=== PATIENT | male | born 1960 | race Caucasian/White ===

== ENCOUNTER 2021-06-15 08:15 | Day surgery (SDC) | payer MEDICARE, MEDICAID ==
[2021-06-08 15:39] LABS: BASOPHILS # (AUTO) 0.1 X10'3 (0-0.2); BASOPHILS % (AUTO) 0.8 % (0-1); EOSINOPHILS # (AUTO) 0.3 X10'3 (0-0.9); EOSINOPHILS % (AUTO) 3.1 % (0-6); LYMPHOCYTES # (AUTO) 0.7 X10'3 (1.1-4.8); LYMPHOCYTES % (AUTO) 7.7 % (21-51); MEAN CORPUSCULAR HEMOGLOBIN 33.2 PG (27.0-31.0); MEAN CORPUSCULAR HGB CONC 33.5 g/dL (33.0-36.5); MONOCYTES # (AUTO) 0.5 X10'3 (0-0.9); NEUTROPHILS # (AUTO) 7.5 X10'3 (1.8-7.7); NEUTROPHILS % (AUTO) 82.4 % (42-75); PRE OP HEMATOCRIT 39.7 % (42.0-52.0); PRE OP HEMOGLOBIN 13.3 g/dL (14.0-17.9); PRE OP PLATELET COUNT 618 X10'3 (140-440); RED BLOOD COUNT 4.01 X10'6 (4.70-6.10); RED CELL DISTRIBUTION WIDTH 15.4 % (11.5-14.5)
[2021-06-08 15:54] LABS: ALBUMIN 3.5 G/DL (3.4-5.0); ALKALINE PHOSPHATASE 56 IU/L (46-116); BLOOD UREA NITROGEN 6 MG/DL (7-18); BUN/CREATININE RATIO 6.4 (5.4-32.0); CALCIUM 8.9 MG/DL (8.5-10.1); CHLORIDE 97 MMOL/L (99-107); CREATININE 0.94 MG/DL (0.60-1.10); PRE OP ALT 26 U/L (30-65); PRE OP ANION GAP 9 (8-16); PRE OP AST 30 U/L (10-37); PRE OP BILIRUB, TOTAL 0.5 MG/DL (0.0-1.0); PRE OP GLUCOSE 92 MG/DL (70-104); PRE OP POTASSIUM 4.5 MMOL/L (3.4-5.1); PRE OP SODIUM 132 MMOL/L (135-145); TOTAL PROTEIN 6.9 G/DL (6.4-8.2); eGFR 82 ML/MIN
[2021-06-08 16:16] LABS: GIANT PLATELET FEW; PLATELET ESTIMATE INCREASED
[2021-06-08 16:17] LABS: ANISOCYTOSIS 1+
[~2021-06-15] VITALS: Ht 165.1 cm; Wt 83.8 kg
[2021-06-15] VITALS (7 sets, daily range): BP systolic 142–164; BP diastolic 79–95
[~2021-06-15 08:15] MED LIST: ALBU18HF2; ATEN50TA8 PO; BACL20TA PO; BUDE180A INH; DOCUMENT DATE & TIME OF BETA-BLOCKER PO ONE; INDOCYANINE GREEN 25 MG/10 ML VIAL IV ONE; LEVO25TA7 PO; LOSA100T57 PO; MELO-102 PO; OMEP40CA21 PO; PREG50CA64 PO; albuterol 2.5 MG/3 ML nebule NEB ONE; cefazolin/dext.iso 2gm/50ml IV ONE; famotidine 20mg tablet PO ONE; ringers solution, lacted 1,000 ML IV SCH
[2021-06-15] MEDS ORDERED: BUDE10.22 INH (08:41)
[2021-06-15] MEDS ORDERED: BUPIVAcaine/PF 2.5 mg/ml (0.25%) 30ml vial ONE (10:59)
[2021-06-15] MEDS ORDERED: LIDOcaine 1% 30ml preserv. free vial ONE (10:59)
[2021-06-15] MEDS ORDERED: fentaNYL/PF 50MCG/1 ML 2ML syringe ONE (11:10)
[2021-06-15] MEDS ORDERED: rocuronium 10mg/ml inj IV ONE (11:10)
[2021-06-15] MEDS ORDERED: midazolam 1 mg/ML 2ml injection ONE (11:10)
[2021-06-15] MEDS ORDERED: propofol inj 20 ML IV ONE (11:10)
[2021-06-15] MEDS ORDERED: ringers solution, lacted 1,000 ML IV SCH (11:45)
[2021-06-15] MEDS ORDERED: meperidine/PF 25mg/ml syringe IV PRN ×3 (11:45)
[2021-06-15] MEDS ORDERED: morphine 4 MG/ML inj SYRINge IV PRN (11:45)
[2021-06-15] MEDS ORDERED: ondansetron/PF 4mg/2ml inj IV PRN (11:45)
[2021-06-15] MEDS ORDERED: morphine 2 MG/ML inj. syringe IV PRN (11:45)
[2021-06-15] MEDS ORDERED: proCHLORperazine 10 MG/2 ml inj IV PRN (11:45)
[2021-06-15] MEDS ORDERED: labetalol 20mg/4ml (5mg/ml) syringe IV PRN (11:45)
[2021-06-15] MEDS ORDERED: neostigmine methylsulfate 1 MG/ML 10ml vial ONE (11:57)
[2021-06-15] MEDS ORDERED: glycopyrrolate 0.2mg/ml inj ONE (11:57)
[2021-06-15] MEDS ORDERED: HYDROcodone/acetaminophen 5mg/325mg tablet PO PRN (12:15)
--- NOTE | 2021-06-15 12:15 | NUR ---
Received from OR via [facility], accompanied by Anesthesiologist and report given by Anesthesiologist. PATIENT WAKING UP, NO S/S OF PAIN, V/S WNL, SCD ON, 20G TO LUE, LAP SURGICAL SITES TO ABDOMEN CDI.
--- NOTE | 2021-06-15 13:05 | NUR ---
PATIENT A&OX4, STATES MILD PAIN, V/S WNL, SCD OFF, 20G TO RUE D/C, LAP SURGICAL SITES TO ABDOMEN CDI.I HAVE REVIEWED D/C INSTRUCTIONS WITH PATIENT and they have verbalized understanding patient d/c home with all belongings and family gave transport home.
== END 2021-06-15 13:05 | disposition home or self-care (01) ==
LOC: PAS 08:15
PROVIDERS: ATTEND Surgery
DX: K81.1 Chronic cholecystitis (principal); E03.9 Hypothyroidism, unspecified; I10 Essential (primary) hypertension; J45.909 Unspecified asthma, uncomplicated; G89.29 Other chronic pain; I27.20 Pulmonary hypertension, unspecified; Z20.822 Contact with and (suspected) exposure to COVID-19; Z79.899 Other long term (current) drug therapy; Z98.890 Other specified postprocedural states; Z87.891 Personal history of nicotine dependence; Z72.89 Other problems related to lifestyle
CPT/HCPCS: 36415; 47563; 71046; 80053; 82948; 85025; 93005; J0690; J2250; J2704; J2710; J3010; J3490; J7030; J7120; U0003; U0005; Z7506; Z7508; Z7512; 85008; 88304; A4215; A4618; A7000

== ENCOUNTER 2023-11-08 13:45 | Outpatient (CLI) | payer MEDICARE, MEDICAID ==
[~2023-11-08 13:45] MED LIST changes: +BUDE10.22 INH; -BUDE180A INH; -DOCUMENT DATE & TIME OF BETA-BLOCKER PO ONE; -INDOCYANINE GREEN 25 MG/10 ML VIAL IV ONE; -LOSA100T57 PO; +LOSA100T58 PO; -PREG50CA64 PO; +PREG50CA65 PO; -albuterol 2.5 MG/3 ML nebule NEB ONE; -cefazolin/dext.iso 2gm/50ml IV ONE; -famotidine 20mg tablet PO ONE; -ringers solution, lacted 1,000 ML IV SCH
== END 2023-11-08 23:59 | disposition home or self-care (01) ==
LOC: CARD DIAG 13:45
PROVIDERS: ATTEND Nurse Practitioner Family
DX: I08.0 Rheumatic disorders of both mitral and aortic valves (principal); R06.09 Other forms of dyspnea
CPT/HCPCS: 93306

== ENCOUNTER 2024-07-30 08:13 | Outpatient (CLI) | payer MEDICARE, MEDICAID ==
[2024-07-30] VITALS (21 sets, daily range): BP systolic 123–158; BP diastolic 77–100; PULSE 99–109
== END 2024-07-30 23:59 | disposition home or self-care (01) ==
LOC: CARD DIAG 08:13
PROVIDERS: ATTEND Physician Assistant
DX: R42 Dizziness and giddiness (principal)
CPT/HCPCS: 93660

== ENCOUNTER 2025-03-16 19:27 | Inpatient (IN) | payer MEDICARE, MEDICAID ==
[~2025-03-16] VITALS: Ht 165.1 cm; Wt 75.0 kg
--- NOTE | 2025-03-16 19:41 | ELECTROCARDIOGRAPH REPORT ---
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 Cruz Zhang Measurements Intervals [place] Rate: 89 P: 60 CA: 131 QRS: 52 QRSD: 141 T: 40 QT: 382 QTc: 465 Interpretive Statements Sinus rhythm Right bundle branch block Electronically Signed On 03-19-2025 7:41:[address] Cruz Zhang Please click the below link to view image of tracing.
[2025-03-16 20:20] LABS: MEAN PLATELET VOLUME 7.6 FL (7.4-10.4); RED CELL DISTRIBUTION WIDTH 20.1 % (11.5-14.5)
[2025-03-16 20:55] LABS: CREATININE 0.89 MG/DL (0.60-1.10); PRO BRAIN NATRIURETIC PEPTIDE 616 PG/ML (0-125); TOTAL CARBON DIOXIDE 22.9 MMOL/L (24-32); eCRCL 74 ML/MIN; eGFR 86 ML/MIN
--- NOTE | 2025-03-16 21:47 | Physician Documentation ---
History of Present Illness ~ Chief Complaint: ALOC Stated Complaint: TRANSFER Time Seen by MD: 21:38 HPI Patient presents to the emergency room that has a transfer from [facility] for evaluation of hallucinations and bizarre behavior. He is initially seen a few days ago where CT scan was performed was negative. That has symptoms have continued to worsen therefore sent him here for evaluation of possible stroke. Medication Reconciliation Allergies: Coded Allergies: No Known Allergies (Unverified , 03/16/25) Scheduled Atenolol (Atenolol), 1 TAB PO DAILY, (Reported) Baclofen (Baclofen), 1 TAB PO BID, (Reported) Budesonide/Formoterol Fumarate (Symbicort 80-4.5 Mcg Inhaler), 2 PUFFS INH Q12H, (Reported) Levothyroxine Sodium (Levothyroxine Sodium), 1 TAB PO DAILY, (Reported) Losartan Potassium (Losartan Potassium), 1 TAB PO DAILY, (Reported) Meloxicam (Meloxicam), 1 TAB PO DAILY, (Reported) Omeprazole (Prilosec), 1 CAP PO DAILY, (Reported) Pregabalin (Pregabalin), 1 CAP PO BID, (Reported) Miscellaneous Medications Albuterol Sulfate (Ventolin Hfa), (Reported) Review of Systems ROS All review of systems negative except as per HPI Physical Exam Vital Signs: Temperature: 98.5, Source: Oral, Heart Rate: 92, Respiratory Rate: 16, BP: 156/88, Pulse Oximetry: 96, Weight: 72.500 Oxygen Flow Rate: 0 Physical Exam General: Patient is awake, alert, in no acute distress Head: Normocephalic and atraumatic. Eyes: Conjunctival normal. EOMI. PERRL. ENT: Mucous membranes moist. Neck: Supple, trachea is midline. Chest: Clear to auscultation bilaterally without rales, rhonchi, or wheezes. There is no accessory muscle use or retractions. Cardiac: RRR without murmurs, gallops, or rubs. Neuro: Cranial nerves II-XII grossly intact. No focal neuro deficits. Progress Results/Orders Results/Orders Orders - GERARD MEJIA MD Monitor (03/16/25 19:38) Saline Lock (03/16/25 19:38) Oxygen (03/16/25 19:38) Hs Troponin I W Calculations (03/16/25 22:38) Straight Cath For Urine Sample (03/16/25 21:01) Page Hospitalist (03/16/25 21:49) Fill Out Med Reconciliation (03/16/25 21:49) Completed Orders - GERARD MEJIA MD Cbc/Diff (03/16/25 19:38) BMP (03/16/25 19:38) PBNP (03/16/25 19:38) Electrocardiogram (03/16/25 19:38) Hs Troponin I W Calculations (03/16/25 19:38) Hs Troponin I W Calculations (03/16/25 21:38) Ua W/Microscopic, Cult If Ind (03/16/25 20:10) Vital Signs 03/16/25 03/16/25 19:38 21:50 Temp 98.5 Pulse 92 Resp 16 14 B/P (MAP) 156/88 Pulse Ox 96 O2 Flow Rate 0 Laboratory Tests Test 03/16/25 20:10 03/16/25 20:11 03/16/25 21:16 Urine Specimen Description Non-specified Urine Color Straw Urine Clarity Clear Urine pH 6.5 Urine Specific [place] 1.015 Urine Protein Negative Urine Glucose (UA) >=1000 H Urine Ketones Negative Urine Occult Blood Negative Urine Nitrite Negative Urine Bilirubin Negative Urine Urobilinogen 0.2 Urine Leukocyte Esterase Negative Urine RBC 0-2 Urine WBC 0-4 Urine Squamous Epithelial Cells None seen Urine Bacteria None seen Urine Culture Indicated Not ind Volume Urine Centrifuged 10 ml Urine Comment White Blood Count 15.5 H Red Blood Count 4.89 Hemoglobin 12.0 L Hematocrit 38.2 L Mean Corpuscular Volume 78.2 Mean Corpuscular Hemoglobin 24.5 L Mean Corpuscular Hemoglobin Concent 31.4 L Red Cell Distribution Width 20.1 H Platelet Count 588 H Mean Platelet Volume 7.6 Neutrophils (%) (Auto) 88.8 H Lymphocytes (%) (Auto) 4.1 L Monocytes (%) (Auto) 3.0 Eosinophils (%) (Auto) 3.6 Basophils (%) (Auto) 0.5 Neutrophils # (Auto) 13.8 H Lymphocytes # (Auto) 0.6 L Monocytes # (Auto) 0.5 Eosinophils # (Auto) 0.6 Basophils # (Auto) 0.1 CBC Comment Sodium Level 137 Potassium Level 4.0 Chloride Level 103 Carbon Dioxide Level 22.9 L Anion Gap 11 Blood Urea Nitrogen 12 Creatinine 0.89 Estimated GFR/1.73 m2 86 BUN/Creatinine Ratio 13.5 Glucose Level 70 Calcium Level 7.8 L Troponin I High Sensitivity 8 9 Pro-B-Type Natriuretic Peptide 616 H Albumin 2.8 L Chemistry Comments Troponin I High Sens Percent Delta 12 Troponin I Hi Sens Absolute Change 1 EKG/XRAY/CT/US/VASC/MRI EKG : Additional Comment EKG interpreted by myself shows time of 192, rate 89, sinus rhythm, normal axis, no ST changes, right bundle-branch block Medical Decision Making Additional information obtaine: other Findings Patient presents to the emergency room as transfer [facility] for hallucinations and altered mental status which has been progressive. Possible polypharmacy versus stroke versus other. We will admit for further investigation. Differential Dx:Considerations: Include: dehydration, Delirium Tr., DKA, encephalopathy, hypercalcemia, HHNC, hypoglycemia, hypernatremia, hyponatremia, hypoxia, postictal, closed head injury, C-spine injury, CVA, mass lesion, subarachnoid hemorrhage, drug overdose, encephalopathy, ETOH intoxication, medication toxicity, infection - meningitis, infection - sepsis, infection - UTI, heart failure, renal failure, respiratory failure, hyperthermia, hypothermia, other Departure Admitted to Inpatient Unit: yes, to hospitalist Impression: Primary Impression: Altered mental status Additional Impression: Hallucinations Condition: Guarded Referrals: NO PRIMARY CARE PROVIDER (PCP) Signature Scribe Signature: No scribe Attestation: The note accurately reflects work and decisions made by me.Gerard Mejia MD 03/16/25 21:48 GERARD MEJIA MD Mar 16, 2025 21:47
[2025-03-16 22:00] LABS: LEUKOCYTE ESTERASE ,URINE NEGATIVE (Neg); NITRITES, URINE NEGATIVE (Neg); OCCULT BLOOD,URINE NEGATIVE (Neg)
[2025-03-16 22:13] LABS: UA COLLECTION TYPE NON-SPECIFIED
[2025-03-16 22:14] LABS: SQUAMOUS EPITHELIAL CELL,UR NONE SEEN /LPF (FEW)
[2025-03-16] MEDS ORDERED: potassium Cl 20 mEq SR tablet PO PRN ×2 (23:25)
[2025-03-16] MEDS ORDERED: ondansetron/PF 4mg/2ml inj IV PRN (23:25)
[2025-03-16] MEDS ORDERED: potassium Cl 40MEQ/1/2NS 520ml 520 ML IV PRN (23:25)
[2025-03-16] MEDS ORDERED: diazepam inj 5 MG/ML inj. IV PRN (23:25)
[2025-03-16] MEDS ORDERED: magnesium sulf-water 4G/100mL 100 ML IV PRN (23:25)
[2025-03-16] MEDS ORDERED: magnesium Cl slow-release 64mg tablet PO PRN (23:25)
[2025-03-16] MEDS ORDERED: magnesium hydroxide 30ml (MOM) UD suspension PO PRN (23:25)
[2025-03-16] MEDS ORDERED: magnesium sulf-water 2g/50mL 50 ML IV PRN (23:25)
[2025-03-16] MEDS ORDERED: mag hydrox/Alum hydrox/simeth 30ml oral suspension PO PRN (23:25)
--- NOTE | 2025-03-16 23:53 | HISTORY AND PHYSICAL-Residence ---
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 Patient was initially taken to [place] by his for confusion which has been progressively getting worse. According to note from that [place], the patient could not remember his address, showed bizarre behavior like using a disconnected cell phone and calling imaginary people, having hallucinations. The patient has apparently not been sleeping well. His home medications include gabapentin and baclofen. When I saw the patient in the ER, he seemed alert and oriented. Reports that he was brought to the ER because of generalized pain. He reports he has been every where, says yes for all the questions asked. The patient has been evaluated at [place], CT head was done which showed no acute findings. The patient has been transferred here for further evaluation with MRI and neurologic consultation. Reports that he was an alcoholic in the past, last drink was couple of weeks ago. I tried contacting the patient's but could not get through Addendum Patient had an episode of seizure while in the ER, later coded and CPR was done, pulse returned in 1 minute, patient was intubated and ventilated, on propofol drip and IV levetiracetam. Allergies: Coded Allergies: No Known Allergies (Unverified , 03/16/25) Home Medications Home Medications Active Reported Symbicort 80-4.5 Mcg Inhaler (Budesonide/Formoterol Fumarate) 10.2 Gm Hfa.aer.ad 2 Puffs INH Q12H Ventolin Hfa (Albuterol Sulfate) 18 Gm Hfa.aer.ad Meloxicam 15 Mg Tablet 1 Tab PO DAILY Atenolol 50 Mg Tablet 1 Tab PO DAILY Prilosec (Omeprazole) 40 Mg Capsule 1 Cap PO DAILY Losartan Potassium 100 Mg Tablet 1 Tab PO DAILY Pregabalin 50 Mg Capsule 1 Cap PO BID Baclofen 20 Mg Tablet 1 Tab PO BID Levothyroxine Sodium 25 Mcg Tablet 1 Tab PO DAILY Past Medical History Past Medical History alcohol use, hypertension, 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, seizures, COPD Past Surgical History Surgical History Comment Rotator cuff surgery Gallbladder surgery Possibly had a brain surgery/skull surgery Past Social History Social History Comment Denies any history of smoking Reports that he has a chronic alcoholic, last drink was probably few weeks ago No history of drug use Lives with his ROS Constitutional: Reports: weakness; Denies: no symptoms reported, see HPI, chills, diaphoresis, fever, malaise, other Exam Vitals: Vital Signs Date Time Temp Pulse Resp B/P (MAP) Pulse Ox O2 Delivery O2 Flow Rate FiO2 03/16/25 21:50 14 03/16/25 19:38 98.5 92 96 0 General: General: Adult male, obese, not in apparent distress Head: Normocephalic with an atraumatic Eyes: Pupils- 3mm, reacting to light, , nonicteric Nose and throat: No polyps, septum- normal, no mucosal ulcers Neck: Supple, no lymphadenopathy, no carotid bruit Respiratory: no use of accessory muscles of respiration, Bilateral normal vesiscular breath sounds heard. Cardiac: S1-S2 heard, rythm regular, no gallop/murmur Abdomen: Mild tenderness in the epigastric region, soft, nondistended, Extremities: no clubbing, no edema, no deformities, peripheral pulses- 2+ Skin: warm and dry, no rash, no purpura, no telangiectasia noted Neuro: Gross cranial nerve examination normal, no focal motor/sensory deficit, no flapping tremors, no tremors on extension Diagnostic Data Last Recorded Lab Results: 03/16/25201003/16/252010 Advance Care Planning Advanced Care plannin - 30 Minutes (I spent 70 minutes in discussing various resuscitative measures, the patient chose to be full code.) Additional Plan Assessment This is a 65-year-old male with a history of alcohol use, hypertension, 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 While waiting in the ER, patient had an episode of seizure and coded, is intubated and ventilated. Plan Seizures Patient has a history of seizures, not sure about his home medications. Patient had an episode of seizures in the ER Seizures could be secondary to alcohol withdrawal vs medication noncompliance vs polypharmacy On propofol and IV levetiracetam Intubated and ventilated. Encephalopathy Metabolic vs toxic Mini-mental examination-score 27 Patient is currently alert and orientedx3 TSH, ammonia, vitamin B12 levels ordered WBC count is elevated but likely chronic leukocytosis Urine analysis negative for infection Chest x-ray done at [place] showed no acute findings. Could be secondary to polypharmacy use, gabapentin and baclofen use(according to the he might have taken 3-5 extra doses), consulted poison control, recommended supportive management. Could be secondary to alcohol use, alcohol levels ordered U tox screen reviewed from [place] is negative CT head done at [place] showed no acute abnormalities MRI head and EEG ordered Please place a neuro consult after MRI is done. Possible history of seizures Please review home medications Diazepam IV Q 15 PRN for seizures History of hypertension Currently blood pressure is in 156/88 Started on losartan 50 mg Review patient's home medications. Possible history of alcohol use Last drink according to the patient was couple of weeks ago Alcohol levels ordered Does not seem to be in withdrawal Started on thiamine, folic acid, multivitamins Code status; FULL CODE DVT prophylaxis: Heparin GI prophylaxis: Pantoprazole Diet: Regular Diet Ryan Velazquez M.D PGY2 Date of Service: Mar 16, 2025 Billing Provider: GISELLE LYNN MD Addendum Patient reported to have a seizure and while attempting to get antiseizure medications patient began to code. Code blue called. Patient received active CPR for a proximally one round with return of spontaneous circulation. Patient found to be in SVT versus a flutter 12 adenosine administered with no effect. Intubation: That has patient is critically ill the need to secure the airway that has necessary therefore patient intubated using MAC four blade that has well as a bougie and a 8. ET tube with rocuronium 50 and etomidate 10 administered for sedation and paralytic. Post procedure chest x-ray confirms placement. Addendum Patient has converted back to sinus rhythm after diltiazem administration. EKG interpreted by myself shows time of 0122, rate 157, sinus tachycardia, normal axis, no ST changes, right bundle-branch block RYAN VELAZQUEZ, GINA Mar 16, 2025 23:53 MAURISIO AQUINO MD Mar 17, 2025 00:54 GISELLE LYNN MD Mar 17, 2025 12:34
[2025-03-17] VITALS (27 sets, daily range): BP systolic 99–207; BP diastolic 54–124; PULSE 75–166; RESP 13–25; TEMP 98.4; O2SAT 92–100
[2025-03-17 00:33] LABS: EOSINOPHILS % (MANUAL) 2.0 % (0-6); LYMPHOCYTES % (MANUAL) 5.0 % (21-51); MONOCYTES % (MANUAL) 4.0 % (2-12); NEUTROPHILS % (MANUAL) 89.0 % (42-75)
[2025-03-17 00:34] LABS: PLATELET ESTIMATE INCREASED
--- NOTE | 2025-03-17 00:47 | ELECTROCARDIOGRAPH REPORT ---
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 Cruz Zhang Measurements Intervals [place] Rate: 167 P: 0 [place]: 58 QRS: -31 QRSD: 139 T: 44 QT: 296 QTc: 494 Interpretive Statements Wide-QRS tachycardia Right bundle branch block Electronically Signed On 03-19-2025 7:41:[address] Cruz Zhang Please click the below link to view image of tracing.
[2025-03-17] MEDS ORDERED: propofol 1000mg/100ml bottle 100 ML IV PRN (00:50)
[2025-03-17] MEDS: normal saline 1000ML IV soln IVB ONE (01:08)
[2025-03-17] MEDS: diltiazem 5mg/ml 5ml inj. IV ONE (01:11)
--- NOTE | 2025-03-17 01:12 | RADIOLOGY REPORT ---
CHEST RADIOGRAPH Indication: post intubation Technique: Single frontal view of the chest was obtained COMPARISON: CHEST,TWO VIEWS on DOS: 06/08/21 FINDINGS: Lines and Tubes: Endotracheal tube tip projects approximately 3.0 cm above the level of the kiel. Enteric catheter courses below the level of the diaphragm and terminates beyond the inferior margin of the image. Lungs: Clear Pleura: No effusion. No pneumothorax. Cardiomediastinal contours: Unremarkable Bones: Unremarkable IMPRESSION: 1. Endotracheal tube and enteric catheter in appropriate position. 2. No acute cardiopulmonary process.
[2025-03-17] MEDS ORDERED: diltiazem-D5W 125mg/125ml 125 ML IV SCH (01:15)
[2025-03-17] MEDS: rocuronium 10mg/ml inj IV STA (01:16)
[2025-03-17] MEDS: adenosine 3mg/ml 2ml vial IV ONE (01:16)
[2025-03-17] MEDS: etomidate 2mg/ml inj. IV STA (01:17)
[2025-03-17 01:19] LABS: ABG BASE EXCESS -11.8 mmol/L (-2.0-3.0); ABG HCO3 17.3 mmol/L (21.0-28.0); ABG OXYGEN SATURATION 95.9 % (94.0-98.0); ABG PCO2 (T) 51.8 mmHg (35.0-48.0); ABG PH (T) 7.141 (7.350-7.450); ABG PO2 (T) 99.9 mmHg (83.0-108.0); ALLEN'S TEST Modified; FCOHb 0.3 % (0.5-1.5); FHHb 4.1 % (0.0-5.0); FIO2 75.0 mmHg/%; FMetHb 0.2 % (0.0-1.5); FO2Hb 95.4 % (94.0-98.0); MODE CMV PRVC IT .8; PATIENT TEMPERATURE 36.9; RESPIRATORY RATE 16 b/min; TIDAL VOLUME 400 mL; TOTAL HEMOGLOBIN 14.2 G/dl (13.5-17.5)
--- NOTE | 2025-03-17 01:22 | CONSULTATION REPORT ---
History of Present Illness Providers to CC ~ Reason for Admit\Admit Dx: Altered mental status History of Present Illness 65 year old male with history of seizure disorder initially transferred with AMS and had a seizure followed by a brief 1 minute arrest in the ED. He is currently intubated and sedated. Allergies: Coded Allergies: No Known Allergies (Unverified , 03/16/25) Home Medications Home Medications Active Reported Symbicort 80-4.5 Mcg Inhaler (Budesonide/Formoterol Fumarate) 10.2 Gm Hfa.aer.ad 2 Puffs INH Q12H Ventolin Hfa (Albuterol Sulfate) 18 Gm Hfa.aer.ad Meloxicam 15 Mg Tablet 1 Tab PO DAILY Atenolol 50 Mg Tablet 1 Tab PO DAILY Prilosec (Omeprazole) 40 Mg Capsule 1 Cap PO DAILY Losartan Potassium 100 Mg Tablet 1 Tab PO DAILY Pregabalin 50 Mg Capsule 1 Cap PO BID Baclofen 20 Mg Tablet 1 Tab PO BID Levothyroxine Sodium 25 Mcg Tablet 1 Tab PO DAILY Past Medical History Medical History Comment HTN Seizure disorder ETOH use disorder Physical Exam Last Vital Signs Recorded: Temperature: 98.5, Source: Oral, Heart Rate: 153, Respiratory Rate: 16, BP: 193/113, Pulse Oximetry: 96, Weight: 72.500 Review of Systems ROS ROS Comments: unable to review, patiet intubated Results Diagram Lab Result Diagram: 03/16/25201003/16/252010 Assessment/Plan Additional Plan Plan: continue propofol load with keppra continue keppra 500bid repeat bmp, cbc and abg continue full vent support send lactate hold antihypertensives CTH when stable for post arrest prognostication send troponin goal normothermia CCT 60 min using HIPPA compliant A/V technology GISELLE LYNN MD Mar 17, 2025 01:22
[2025-03-17] MEDS: levetiracetamNACL 1500mg/100mL 100 ML IV ONE ×2 (01:23→01:53)
[2025-03-17] MEDS: MIDAZolam 5mg/ml 2ml vial IV ONE (01:27)
[2025-03-17 01:38] LABS: CHOL/HDL RATIO 3.0 (0.00-4.99); CREATININE 0.98 MG/DL (0.60-1.10); LDL CHOLESTEROL 50 MG/DL (50-100); TOTAL CARBON DIOXIDE 16.7 MMOL/L (24-32); eCRCL 67 ML/MIN; eGFR 77 ML/MIN
[2025-03-17 01:40] LABS: ETHANOL < 10 MG/DL (<10)
[2025-03-17 01:46] LABS: INR 1.2 INR
[2025-03-17 01:49] LABS: APTT 33 SECONDS (22-32)
[2025-03-17] MEDS: propofol 1000mg/100ml bottle 100 ML IV PRN (01:50)
[2025-03-17 01:56] LABS: MEAN PLATELET VOLUME 7.8 FL (7.4-10.4); RED CELL DISTRIBUTION WIDTH 20.2 % (11.5-14.5)
--- NOTE | 2025-03-17 02:34 | RADIOLOGY REPORT ---
EXAM: CT CT HEAD INDICATION: ams TECHNIQUE: CT of the head without intravenous contrast. Radiation Dose : 1. Head: CT Dose: CTDI volume is 68.28 mGy. Dose-length product is 1389.99 mGy*cm The dose indicators for CT are the volume Computed Tomography (CT) Dose Index (CTDIvol) and the Dose Length Product (DLP), and are measured in units of mGy and mGy-cm, respectively. These indicators are not patient dose, but values generated from the CT scanner acquisition factors. The report includes radiation exposure data for exposures received during this examination. COMPARISON: CT HEAD on DOS: 03/16/25 FINDINGS: There is no evidence of acute intracranial hemorrhage, extra-axial collection, mass effect, midline shift, herniation or hydrocephalus. Increased prominence of the ventricles, sulci and cisterns consistent with the sequelae of atrophic cortical volume loss. The castro-white differentiation is intact. Moderate diffuse confluent periventricular and subcortical white matter hypoattenuation is nonspecific but may be related to small vessel ischemic disease. Pansinusitis. The mastoid air cells are clear. The surrounding soft tissues and osseous structures are unremarkable. IMPRESSION: 1. No acute intracranial abnormality. 2. 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 Radiation optimization: All CT scans at this facility use at least one of these dose optimization techniques: automated exposure control mA and/or kV adjustment per patient size (includes targeted exams where dose is matched to clinical indication) or iterative reconstruction.
[2025-03-17] MEDS: fentaNYL/PF 50MCG/1 ML 2ML syringe IV PRN (03:09)
[2025-03-17 04:10] LABS: ABG BASE EXCESS -9.7 mmol/L (-2.0-3.0); ABG HCO3 16.5 mmol/L (21.0-28.0); ABG OXYGEN SATURATION 97.7 % (94.0-98.0); ABG PCO2 (T) 37.0 mmHg (35.0-48.0); ABG PH (T) 7.265 (7.350-7.450); ABG PO2 (T) 105.0 mmHg (83.0-108.0); ALLEN'S TEST POSITIVE; FCOHb 0.9 % (0.5-1.5); FHHb 2.3 % (0.0-5.0); FIO2 75.0 mmHg/%; FMetHb 0.3 % (0.0-1.5); FO2Hb 96.5 % (94.0-98.0); MODE CMV PRVC IT 0.8; PATIENT TEMPERATURE 36.9; PEEP 5 cm H2O; RESPIRATORY RATE 16 b/min; TIDAL VOLUME 450 mL; TOTAL HEMOGLOBIN 12.8 G/dl (13.5-17.5)
--- NOTE | 2025-03-17 04:46 | ELECTROCARDIOGRAPH REPORT ---
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 Cruz Zhang Measurements Intervals [place] Rate: 157 P: 0 NC: 58 QRS: -134 QRSD: 141 T: 42 QT: 319 QTc: 516 Interpretive Statements Sinus tachycardia Right bundle branch block Probable inferior infarct, old Baseline wander in lead(s) III,aVF,V6 Electronically Signed On 03-19-2025 7:41:[address] Cruz Zhang Please click the below link to view image of tracing.
[2025-03-17] MEDS: K and/or MAG REPLACEMENT MC SCH (07:11)
[2025-03-17] MEDS: thiamine 100mg/ml 2ml inj. IV SCH (07:17)
[2025-03-17] MEDS: heparin, porcine 5000 units/ml vial SQ SCH (07:17)
[2025-03-17] MEDS: MULTIVIT-MIN/FERROUS GLUCONATE 9 MG/15 ML LIQUID OGT SCH (07:17)
[2025-03-17] MEDS: docusate sod 100mg capsule PO SCH (07:18)
[2025-03-17] MEDS: diltiazem-NS 100mg/100ml 100 ML IV SCH (07:22)
[2025-03-17] MEDS ORDERED: acetaminophen 325mg/10.15ml oral unit dose solution OGT PRN (07:26)
[2025-03-17] MEDS ORDERED: POTASSIUM CHLORIDE 20 MEQ/15 ML oral solution OGT PRN (07:27)
[2025-03-17] MEDS ORDERED: magnesium hydroxide 30ml (MOM) UD suspension OGT PRN (07:27)
[2025-03-17] MEDS: docusate sodium 100mg/10ml UD cup OGT SCH (07:57)
[2025-03-17] MEDS: folic acid 1mg/0.2ml inj IV SCH (07:57)
[2025-03-17] MEDS ORDERED: rocuronium 10mg/ml inj IV ONE (08:00)
[2025-03-17] MEDS ORDERED: etomidate 2mg/ml inj. ONE (08:00)
[2025-03-17] MEDS ORDERED: sod chloride 0.9% 10ml flush syringe IV ONE (08:00)
[2025-03-17] MEDS ORDERED: epiNEPHrine 0.1mg/ml 10ml syringe ONE (08:00)
[2025-03-17] MEDS ORDERED: adenosine 3mg/ml 2ml vial IV ONE (08:00)
[2025-03-17] MEDS ORDERED: albuterol 2.5 MG/3 ML nebule NEB PRN (10:25)
[2025-03-17] MEDS ORDERED: GABA300C PO (11:05)
[2025-03-17] MEDS ORDERED: LEVO50TA8 PO (11:05)
[2025-03-17] MEDS ORDERED: FLUT1BLS16 INH (11:05)
[2025-03-17] MEDS ORDERED: FLUT16SP9 BOTHNARES (11:05)
[2025-03-17] MEDS ORDERED: ALBU8HFA INH (11:05)
[2025-03-17] MEDS ORDERED: [UNRECOGNIZED DRUG - CODE] PO (11:05)
[2025-03-17] MEDS ORDERED: TAMS-55 PO (11:05)
[2025-03-17] MEDS ORDERED: BACL20TA PO (11:05)
--- NOTE | 2025-03-17 11:13 | PROGRESS NOTE- Residence ---
Progress Note - Resident Providers to CC Resident Creating Document: KAREEN ROONEY RES ~ Central Line/PICC still needed: No Dick-Non Protocol Dick Indications Met/Not Met: F/C Indications Met Antibiotic Timeout Antibiotic Ordered?: No Subjective Patient is comfortable at bedside, he has been extubated and is now maintained on 2 L of oxygen via nasal cannula. Continues to have an altered train of thought and poor memory. Unable to provide reliable history. He is stable for downgrading to the floor today. Reports generalized soreness throughout. But denies any particular changes in vision, headaches or hearing changes. Objective Vital Signs Date Time Temp Pulse Resp B/P (MAP) Pulse Ox O2 Delivery O2 Flow Rate FiO2 03/17/25 10:00 98.2 95 25 136/76 (96) 96 Nasal Cannula 3.0 03/17/25 08:00 40 Result Diagram: 03/17/25 0129 03/17/25 0044 General: Awake and Alert, no acute distress. HEENT: Conjunctiva pink, Sclera clear, Mucus Membranes moist. Resp: Unlabored. Lungs clear to auscultation bilaterally. Heart: Regular Rate and rhythm, normal S1 and S2 without murmur, rub or gallop. Abdomen: Distended, soft, mild tenderness diffusely Extremities: No cyanosis,clubbing or edema. AREA FIELD PERSON: Conscious and coherent. No cranial nerve deficits. Vision 6 x 6. Normal tone and nutrition. No motor or sensory deficits. Absent drift. Bradykinesia. Essential tremors. Skin: Warm and Dry. 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 He was found to have a seizure in the ER after which he had coded but ROSC was returned with a minute and he was transferred to the ICU after intubation. He has been extubated today on 03/17/2025. Plan Plan Cardiac arrest status post ROSC: Mechanically intubated secondary to above Lactic acidosis secondary to above Extubated today on 03/17/2025 No other acute events through the night in the ICU Patient is stable for downgrading to the floor Seizure: Etiology unclear Likely alcohol withdrawal seizure Hyperammonemia resolved CT head normal; no intracranial lesions observed Received Keppra loading dose followed by Keppra b.i.d. 500 mg Librium 25 mg b.i.d. started Continue alcohol withdrawal protocol Progressive altered mental status: Chronic progressive encephalopathy MMSE: 27 CT head reveals diffuse cortical atrophy with increased prominence of the ventricles Gait is bradykinetic and magnetic. Presented with behavioral changes and hallucinations Differentials include FTD/Lewy body dementia/Parkinson's/NPH/polypharmacy use with the baclofen or gabapentin Hold baclofen. 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 Follow CBC closely Procalcitonin negative. No SIRS reaction. Lactic acid within normal limits Continue home medication of hydroxyurea 500 mg on Saturday and Monitor for worsening leukocytosis or signs of SIRS Code status; FULL CODE DVT prophylaxis: Heparin GI prophylaxis: Pantoprazole Diet: Regular Diet Kareen Rooney PGY3, Internal medicine resident Date of Service: Mar 17, 2025 Billing Provider: JAYANT JETT MD, DEEPANJALI, RES Mar 17, 2025 11:13
[2025-03-17] MEDS ORDERED: non-formulary drug (albuterol inhaler (Pro-Air Inhaler) 2 PUFFS) INH PRN (11:15)
[2025-03-17] MEDS ORDERED: lactulose 20gm/30ml cup PO SCH (14:00)
[2025-03-17] MEDS: ipratropium/albuterol 3ml nebule NEB SCH (20:07)
[2025-03-17] MEDS: budesonide 0.5mg/2ml UD nebule IH SCH (20:07)
--- NOTE | 2025-03-17 20:58 | PROGRESS NOTE ---
Daily Progress Note Providers to CC ~ Antibiotic Timeout Antibiotic Ordered?: No Subjective The patient was extubated this morning and when I evaluated the patient the patient is alert and oriented x4 has been transferred to the orthopedic floor on a clinical nursing assistant for 24 hours Objective Vital Signs Date Time Temp Pulse Resp B/P (MAP) Pulse Ox O2 Delivery O2 Flow Rate FiO2 03/17/25 20:18 16 03/17/25 20:16 84 Room Air 0.0 92 03/17/25 20:12 92 03/17/25 17:00 98.1 140/79 (99) Result Diagram: 03/17/25 0129 03/17/25 0044 Gen. No acute distress alert and oriented 4 Lungs clear to ascultation bilaterally, no wheezes rales or rhonchi appreciated Heart normal sinus rhythm no murmurs rubs or clicks noted Abdomen soft nontender bowel sounds are normoactive Lower extremities no clubbing cyanosis, nor edema appreciated bilaterally Coagulation Studies Laboratory Tests Test 03/17/25 00:44 Prothrombin Time 12.1 SECONDS (9.0-12.0) H INR International Normalized Ratio 1.2 INR Activated Partial Thromboplast Time 33 SECONDS (22-32) H Coagulation Comments Problem\Assessment\Plan Problems/Diagnosis: (1) Hallucinations Cardiac arrest status post ROSC: Mechanically intubated secondary to above AFib RVR Lactic acidosis secondary to above Extubated today on 03/17/2025 No other acute events through the night in the ICU The patient is transferred to the orthopedic floor on clinical nursing assistant for 24 hours AFib RVR resolved with diltiazem drip also received adenosine Seizure: Etiology unclear Likely alcohol withdrawal seizure Hyperammonemia resolved CT head normal; no intracranial lesions observed Received Keppra loading dose followed by Keppra b.i.d. 500 mg Librium 25 mg b.i.d. started Continue alcohol withdrawal protocol Progressive altered mental status: Chronic progressive encephalopathy MMSE: 27 CT head reveals diffuse cortical atrophy with increased prominence of the ventricles Gait is bradykinetic and magnetic. Presented with behavioral changes and hallucinations Differentials include FTD/Lewy body dementia/Parkinson's/NPH/polypharmacy use with the baclofen or gabapentin Hold baclofen. 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 Follow CBC closely Procalcitonin negative. No SIRS reaction. Lactic acid within normal limits Continue home medication of hydroxyurea 500 mg on Saturday and Monitor for worsening leukocytosis or signs of SIRS Date of Service: Mar 17, 2025 Billing Provider: SILVIA HERNANDEZ DO Common Visit Codes: [id number] INP/OBS CARE(HIGH) SILVIA HERNANDEZ DO Mar 17, 2025 20:58
[2025-03-18] VITALS (15 sets, daily range): BP systolic 114–144; BP diastolic 59–83; PULSE 82–105; RESP 15–18; TEMP 97.8–99; O2SAT 92–97
[2025-03-18 05:40] LABS: MEAN PLATELET VOLUME 7.9 FL (7.4-10.4); RED CELL DISTRIBUTION WIDTH 19.9 % (11.5-14.5)
[2025-03-18 05:57] LABS: CREATININE 0.76 MG/DL (0.60-1.10); TOTAL CARBON DIOXIDE 22.9 MMOL/L (24-32); eCRCL 87 ML/MIN; eGFR > 90 ML/MIN
[2025-03-18] MEDS: POTASSIUM CHLORIDE 20 MEQ/15 ML oral solution OGT PRN (07:49)
[2025-03-18] MEDS: levoTHYROXINE 25mcg tablet PO SCH (07:53)
--- NOTE | 2025-03-18 19:18 | PROGRESS NOTE ---
Daily Progress Note Providers to CC ~ Antibiotic Timeout Antibiotic Ordered?: No Subjective The patient is alert and oriented x4 has a mild tremors however is doing rather well and if stable will likely be discharged in the a.m. Objective Vital Signs Date Time Temp Pulse Resp B/P (MAP) Pulse Ox O2 Delivery O2 Flow Rate FiO2 03/18/25 18:30 114 03/18/25 18:00 97.8 15 114/59 (77) 97 Room Air 03/18/25 15:20 0.0 95 Result Diagram: 03/18/259 03/18/25 0459 Gen. No acute distress alert and oriented 4 Lungs clear to ascultation bilaterally, no wheezes rales or rhonchi appreciated Heart normal sinus rhythm no murmurs rubs or clicks noted Abdomen soft nontender bowel sounds are normoactive Lower extremities no clubbing cyanosis, nor edema appreciated bilaterally Coagulation Studies Laboratory Tests Test 03/17/25 00:44 Prothrombin Time 12.1 SECONDS (9.0-12.0) H INR International Normalized Ratio 1.2 INR Activated Partial Thromboplast Time 33 SECONDS (22-32) H Coagulation Comments Problem\Assessment\Plan Problems/Diagnosis: (1) Hallucinations Cardiac arrest status post ROSC: Mechanically intubated secondary to above AFib RVR Mildly elevated high sensitivity troponin- possibly secondary to a type 2 mi due to cardiac arrest Lactic acidosis secondary to above Extubated today on 03/17/2025 No other acute events through the night in the ICU The patient is transferred to the orthopedic floor on engine monitor for 24 hours AFib RVR resolved with diltiazem drip also received adenosine Seizure: Likely alcohol withdrawal seizure Hyperammonemia resolved CT head normal; no intracranial lesions observed Received Keppra loading dose followed by Keppra b.i.d. 500 mg Librium 25 mg b.i.d. started Continue alcohol withdrawal protocol Metabolic encephalopathy secondary to hepatic encephalopathy/ hyperammonemia MMSE: 27 CT head reveals diffuse cortical atrophy with increased prominence of the ventricles Gait is bradykinetic and magnetic. Presented with behavioral changes and hallucinations Differentials include FTD/Lewy body dementia/Parkinson's/NPH/polypharmacy use with the baclofen or gabapentin Hold baclofen. 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 Follow CBC closely Procalcitonin negative. No SIRS reaction. Lactic acid within normal limits Continue home medication of hydroxyurea 500 mg on Saturday and Monitor for worsening leukocytosis or signs of SIRS Disposition: PT to evaluate and likely discharge in the a.m. Date of Service: Mar 18, 2025 Billing Provider: SILVIA HERNANDEZ DO Common Visit Codes: [id number] INP/OBS CARE(HIGH) SILVIA HERNANDEZ DO Mar 18, 2025 19:18
[2025-03-19] VITALS (10 sets, daily range): BP systolic 114–143; BP diastolic 64–92; PULSE 86–110; RESP 16–18; TEMP 97.7–98.4; O2SAT 94–97
[2025-03-19] MEDS: HYDROmorphone inj. 0.5 MG/0.5 ML DISP.SYRIN IV PRN (01:22)
[2025-03-19] MEDS: diphenhydrAMINE 2%/zinc acetate cream TP ONE (01:29)
[2025-03-19 06:58] LABS: MEAN PLATELET VOLUME 8.1 FL (7.4-10.4); RED CELL DISTRIBUTION WIDTH 20.5 % (11.5-14.5)
[2025-03-19 07:18] LABS: CREATININE 0.88 MG/DL (0.60-1.10); TOTAL CARBON DIOXIDE 28.3 MMOL/L (24-32); eCRCL 75 ML/MIN; eGFR 87 ML/MIN
[2025-03-19] MEDS: diphenhydrAMINE 2%/zinc acetate cream TP SCH (08:28)
[2025-03-19 08:39] LABS: PLATELET ESTIMATE INCREASED
[2025-03-19 08:40] LABS: ELLIPTOCYTES FEW
[2025-03-19] MEDS ORDERED: CHLO25CA10 PO (10:03)
[2025-03-19] MEDS ORDERED: LEVE500T PO (10:03)
[2025-03-19] MEDS: mag hydrox/Alum hydrox/simeth 30ml oral suspension OGT PRN (13:15)
--- NOTE | 2025-03-19 19:59 | DISCHARGE SUMMARY ---
Discharge Summary Providers to CC ~ Discharge Summary Admission Diagnosis: encephalopathy Hospital Course DATE OF ADMISSION: 03/16/2025 DATE OF DISCHARGE: 03/19/2025 Discharge Diagnosis\\Comment: Cardiac arrest status post ROSC, type 2 mi, AFib RVR, mechanical intubation, possible alcohol withdrawal seizure with maged seizure activity, metabolic encephalopathy secondary to hepatic encephalopathy, hematological disorder followed by personnel coordinator Operations\\Procedures: Mechanical intubation Consultants: Engine Lathe Set Up Operator service Complications: None Condition on DC: Stable New Medications: Chlordiazepoxide HCl (Chlordiazepoxide HCl) 25 Mg Capsule 25 MG PO Q8H, #6 CAP Take 1 tablet 3 x a day x 1 day, then 1 tablet 2 x a day x 1 day then 1 tablet a day x 1 day Levetiracetam (Levetiracetam) 500 Mg Tablet 1 TAB PO Q12H for 30 Days, #60 TAB 0 Refills Continued Medications: albuterol inhaler (Pro-Air Inhaler) 8.5 Gm Inhaler 2 PUFFS INH Q4HPRN PRN for wheezing for 30 Days, #18 GM Atenolol (Atenolol) 50 Mg Tablet 1 TAB PO DAILY for 30 Days, #30 TAB 0 Refills Fluticasone Propionate (Fluticasone Propionate) 16 Gm [place].susp 1-2 SPRAYS BOTHNARES DAILY, #16 GM 0 Refills Fluticasone/Umeclidin/Vilanter (Trelegy Ellipta 200-62.5-25) 200-62.5 Blst.w.dev 1 PUFFS INH DAILY for 30 Days, #60 EA 0 Refills Gabapentin (Neurontin) 300 Mg Capsule 1 CAP PO BID for 30 Days, #90 CAP 0 Refills Hydroxyurea (HYDREA capsule) 500 Mg Capsule 1 CAP PO MON,WED,FRI for 30 Days, #30 CAP 0 Refills Levothyroxine Sodium (Levothyroxine Sodium) 50 Mcg Tablet 1 TAB PO DAILY for 30 Days, #30 TAB 0 Refills Losartan Potassium (Losartan Potassium) 100 Mg Tablet 1 TAB PO DAILY for 30 Days, #30 TAB 0 Refills Omeprazole (Prilosec) 40 Mg Capsule 1 CAP PO DAILY for 30 Days, #30 CAP Tamsulosin Hcl* (Flomax*) 0.4 Mg Cap.sr.24h 1 CAP PO DAILY for 30 Days, #30 CAP Discontinued Medications: Baclofen (Baclofen) 20 Mg Tablet 1-2 TAB PO HS PRN for muscle spasms for 30 Days, #90 TAB 0 Refills Discharge Summary: The patient was admitted by CARMEN Rush , under the supervision of GISELLE Castellanos MD with the following HPI:"This is a 65-year-old male with a history of alcohol use, hypertension, 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 Patient was initially taken to [facility] by his for confusion which has been progressively getting worse. According to note from that [facility], the patient could not remember his address, showed bizarre behavior like using a disconnected cell phone and calling imaginary people, having hallucinations. The patient has apparently not been sleeping well. His home medications include gabapentin and baclofen. When I saw the patient in the ER, he seemed alert and oriented. Reports that he was brought to the ER because of generalized pain. He reports he has been every where, says yes for all the questions asked. The patient has been evaluated at [facility], CT head was done which showed no acute findings. The patient has been transferred here for further evaluation with MRI and neurologic consultation. Reports that he was an alcoholic in the past, last drink was couple of weeks ago. I tried contacting the patient's but could not get through Addendum Patient had an episode of seizure while in the ER, later coded and CPR was done, pulse returned in 1 minute, patient was intubated and ventilated, on propofol drip and IV levetiracetam." Patient also had a rapid heart rate in the ED he has which was initially consider SVT was the patient is given adenosine followed by diltiazem 15 mg an hour this was discontinued and the patient went to the ICU on the morning of the the patient was extubated and transferred to the neurology floor the patient had no further episodes of seizures initially has a metabolic encepha lopathy secondary to hepatic encephalopathy and was given lactulose which his serum ammonia level had normalized the initial serum ammonia level was 107. The patient has a mild elevation in his high sensitivity troponin at 79 this was possibly secondary to a type 2 mi secondary to cardiac arrest code. The patient has taken hydroxyurea in the past however states he is no longer on this medication in his followed by personnel coordinator for which he was recommended follow up in the outpatient setting. The patient was stable and was assessed to be able to be discharged on 03/19/2025 with a prescription for Librium 25 mg one tablet t.i.d. for one day then one tablet b.i.d. for one day then one tablet daily for one day. I recommended that the patient go to daily AA meetings and obtain a sponsor. Gen. No acute distress alert and oriented 4 Lungs clear to ascultation bilaterally, no wheezes rales or rhonchi appreciated Heart normal sinus rhythm no murmurs rubs or clicks noted Abdomen soft nontender bowel sounds are normoactive Lower extremities no clubbing cyanosis, nor edema appreciated bilaterally The patient felt ready to be discharged and was medically cleared to be discharged on 03/19/2025 The patient was seen and evaluated on day of discharge. Time spent on discharge 35 minutes *Problems/Diagnosis: (1) Hallucinations Status: Acute Total Time Spent on D/C: > 30 Minutes Date of Service: Mar 19, 2025 Billing Provider: SILVIA HERNANDEZ DO Common Visit Codes: [id number] DISCH DAY >30min SILVIA HERNANDEZ DO Mar 19, 2025 19:59
== END 2025-03-19 14:00 | disposition home or self-care (01) | DRG 100 ==
LOC: ER 19:28 → ED HOLD 22:27 → CICU 2S 03-17 02:42 → ORTHO 4S 03-17 17:36
PROVIDERS: ADMIT Internal Medicine; ATTEND Family Medicine
PROC: 5A1935Z Respiratory Ventilation, Less than 24 Consecutive Hours (ICD-10-PCS; principal; 2025-03-17)
PROC: 5A12012 Performance of Cardiac Output, Single, Manual (ICD-10-PCS; 2025-03-17)
PROC: 0BH17EZ Insertion of Endotracheal Airway into Trachea, Via Natural or Artificial Opening (ICD-10-PCS; 2025-03-17)
DX: G40.509 Epileptic seizures related to external causes, not intractable, without status epilepticus (principal); I21.A1 Myocardial infarction type 2; I46.9 Cardiac arrest, cause unspecified; F10.239 Alcohol dependence with withdrawal, unspecified; C92.10 Chronic myeloid leukemia, BCR/ABL-positive, not having achieved remission; R44.3 Hallucinations, unspecified; I47.10 Supraventricular tachycardia, unspecified; K76.82 Hepatic encephalopathy; J44.9 Chronic obstructive pulmonary disease, unspecified; I10 Essential (primary) hypertension; Z79.899 Other long term (current) drug therapy
CPT/HCPCS: 31500; 36415; 36600; 70450; 71045; 80048; 80053; 80061; 80320; 80329; 81001; 82140; 82607; 82803; 82948; 83036; 83605; 83735; 83880; 84132; 84145; 84443; 84478; 84484; 85007; 85008; 85018; 85025; 85610; 85730; 87040; 87070; 87081; 92950; 93005; 94002; 94640; 94760; 94799; 97116; 97161; 97530; 99285; A4615; C1758; G0378; J0153; J0169; J1171; J1644; J1953; J2470; J2704; J3010; J3411; J3490; J7030